=== PATIENT | female | born 2000 | race Caucasian/White ===

== ENCOUNTER 2024-12-17 18:03 | Inpatient (IN) | payer OTHER ==
[~2024-12-17] VITALS: Ht 162.6 cm; Wt 104.3 kg
[2024-12-17] MEDS: LORAZEPAM 0.5MG TABLET PO ONE (18:46)
[2024-12-17 19:08] LABS: BASOPHILS % 0.8 % (0.0-2.0); EOSINOPHILS % 0.7 % (0.0-5.0); HEMATOCRIT. 36.5 % (36.0-48.0); HEMOGLOBIN. 12.4 g/dL (12.0-16.0); LYMPHOCYTES % 23.2 % (20.0-50.0); MEAN CORPUSCULAR HEMOGLOBIN 27.6 pg (28.0-32.0); MEAN CORPUSCULAR HGB CONC 33.9 g/dL (31.0-37.0); MEAN CORPUSCULAR VOLUME 81.4 fL (81.0-99.0); MEAN PLATELET VOLUME 8.6 fl (7.4-10.4); MONOCYTES % 7.4 % (2.0-8.0); NEUTROPHILS % 67.9 % (40.0-76.0); PLATELET 257 x1000/uL (130-400); RED BLOOD CELL COUNT 4.49 mill/uL (4.2-5.4); RED CELL DISTRIBUTION WIDTH 14.2 % (11.6-14.6); WHITE BLOOD COUNT 8.5 x1000/uL (4.5-11.0)
[2024-12-17 19:13] LABS: CHLORIDE 109 mEq/L (98-107); POTASSIUM 3.9 mEq/L (3.5-5.1); SODIUM 138 mEq/L (136-145)
[2024-12-17 19:14] LABS: CARBON DIOXIDE 23 mEq/L (21-32)
[2024-12-17 19:19] LABS: CREATININE 0.7 mg/dL (0.6-1.0); GLUCOSE 91 mg/dL (70-105); UREA NITROGEN BLOOD 11 mg/dL (9-23)
[2024-12-17] MEDS ORDERED: CLONIDINE 0.1MG TABLET PO PRN (23:00)
[2024-12-17] MEDS ORDERED: ENOXAPARIN 40MG/0.4ML SYR SUBCUT SCH (23:00)
[2024-12-17] MEDS ORDERED: ONDANSETRON HCL 4MG/2ML INJ IV PRN (23:00)
[2024-12-17] MEDS ORDERED: NALOXONE HCL 0.4MG/ML VIAL IV PRN (23:15)
[2024-12-17 23:22] VITALS: BP 107/76; PULSE 95; RESP 16; TEMP 36.5
[2024-12-18] MEDS: SODIUM CHLORIDE 0.9% 1,000 ML IV SCH (00:32)
[2024-12-18 01:01] LABS: CLARITY URINE CLEAR (CLEAR); COLOR URINE YELLOW (YELLOW); GLUCOSE URINE NEGATIVE (NEGATIVE); KETONES URINE NEGATIVE (NEGATIVE); LEUKOCYTE ESTERASE URINE NEGATIVE (NEGATIVE); NITRITE URINE NEGATIVE (NEGATIVE); OCCULT BLOOD URINE NEGATIVE (NEGATIVE); PH URINE 5.5 (4.5-8.0); PROTEIN URINE NEGATIVE (NEGATIVE); UROBILINOGEN URINE 0.2 E.U./dL (0.2-1.0)
[2024-12-18 01:16] LABS: *AMPHETAMINES SCREEN URINE NEGATIVE (NEGATIVE); *BARBITURATES SCREEN URINE NEGATIVE (NEGATIVE); *BENZODIAZEPINES SCREEN URINE NEGATIVE (NEGATIVE); *COCAINE SCREEN URINE NEGATIVE (NEGATIVE); CANNABINOID URINE SCREEN NEGATIVE (NEGATIVE); ECSTASY MDMA SCREEN URINE NEGATIVE (NEGATIVE); METHADONE URINE SCREEN NEGATIVE (NEGATIVE); OPIATES URINE SCREEN NEGATIVE (NEGATIVE); PHENCYCLIDINE URINE SCREEN NEGATIVE (NEGATIVE)
[2024-12-18] MEDS: ACETAMINOPHEN 325MG TABLET PO PRN (04:03)
[2024-12-18] MEDS: ZOLPIDEM TARTRATE 5MG TABLET PO PRN (04:08)
[2024-12-18 08:00] VITALS: BP 110/73; PULSE 87; RESP 20; TEMP 35.9; O2SAT 98
[2024-12-18] MEDS: PANTOPRAZOLE SODIUM 40 MG/VIAL IV SCH (09:00)
[2024-12-18] MEDS: ENOXAPARIN 30MG/0.3ML SYR SUBCUT SCH (09:59)
[2024-12-18 12:00] VITALS: BP 122/79; PULSE 88; RESP 20; TEMP 36.5; O2SAT 97
[2024-12-18 16:00] VITALS: BP 104/67; PULSE 89; RESP 18; TEMP 36.2; O2SAT 100
[2024-12-18 20:00] VITALS: BP 101/54; PULSE 81; RESP 19; TEMP 37; O2SAT 98
[2024-12-18] MEDS ORDERED: ESCI-7 PO (23:08)
[2024-12-19] VITALS: BP 118/66; PULSE 81; RESP 19; TEMP 36.7; O2SAT 99
[2024-12-19 08:00] VITALS: BP 123/72; PULSE 70; RESP 18; TEMP 36.4; O2SAT 99
[2024-12-19] MEDS: CITALOPRAM HYDROBROMIDE 10MG TABLET PO SCH (08:49)
[2024-12-19 12:00] VITALS: BP 119/82; PULSE 88; RESP 18; TEMP 36.7; O2SAT 97
[2024-12-19] MEDS: HYDROCODONE/ACETAMINOPHEN 5/325MG TABLET PO PRN (14:37)
[2024-12-19 16:00] VITALS: BP 109/66; PULSE 84; RESP 18; TEMP 36.6; O2SAT 95
[2024-12-19 20:00] VITALS: BP 106/62; PULSE 85; RESP 20; TEMP 35.9; O2SAT 98
[2024-12-20] VITALS: BP 102/65; PULSE 76; RESP 20; TEMP 36.3; O2SAT 98
[2024-12-20 04:00] VITALS: BP 104/67; PULSE 70; RESP 20; TEMP 36.2; O2SAT 97
[2024-12-20 08:00] VITALS: BP 121/79; PULSE 81; RESP 18; TEMP 36.7; O2SAT 97
[2024-12-20] MEDS: BUPROPION HCL 150MG TABLET XL 24HR PO SCH (11:00)
[2024-12-20 12:00] VITALS: BP 125/79; PULSE 82; RESP 18; TEMP 36.5; O2SAT 98
[2024-12-20 20:00] VITALS: BP 107/77; PULSE 84; RESP 16; TEMP 36.3; O2SAT 100
[2024-12-21] VITALS: BP 119/69; PULSE 70; RESP 20; TEMP 36.8; O2SAT 96
[2024-12-21] MEDS ORDERED: ESCI10TA MT (00:46)
[2024-12-21 04:00] VITALS: BP 125/83; PULSE 63; RESP 19; TEMP 36.6; O2SAT 100
[2024-12-21] MEDS: FAMOTIDINE 20MG/2ML VIAL IV SCH (09:55)
[2024-12-21 12:00] VITALS: BP 135/84; PULSE 85; RESP 18; TEMP 36.7; O2SAT 97
[2024-12-21] MEDS ORDERED: ESCI-7 PO (12:03)
[2024-12-21] MEDS ORDERED: BUPR-114 PO (12:03)
[2024-12-21 16:00] VITALS: BP 119/74; PULSE 79; RESP 18; TEMP 36.6; O2SAT 98
[2024-12-21 20:00] VITALS: BP 128/79; PULSE 70; RESP 17; TEMP 36.1; O2SAT 97
[2024-12-22] VITALS (8 sets, daily range): BP systolic 98–133; BP diastolic 59–81; PULSE 64–82; RESP 17–19; TEMP 36.2–36.7; O2SAT 97–100
[2024-12-22 21:26] LABS: TROPONIN I HIGH SENSITIVITY < 4 ng/L (3.0-34)
[2024-12-23] VITALS: BP 115/78; PULSE 68; RESP 17; TEMP 36.9; O2SAT 96
[2024-12-23 04:00] VITALS: BP 118/76; PULSE 68; RESP 16; TEMP 36.6; O2SAT 100
[2024-12-23 08:00] VITALS: BP 125/76; PULSE 60; RESP 18; TEMP 36.2; O2SAT 100
[2024-12-23 12:00] VITALS: BP 134/93; PULSE 88; RESP 18; TEMP 36.5; O2SAT 100
[2024-12-23 16:00] VITALS: BP 134/88; PULSE 84; RESP 18; TEMP 36.5; O2SAT 98
[2024-12-23 20:00] VITALS: BP 126/86; PULSE 82; RESP 20; TEMP 36.3; O2SAT 98
[2024-12-24] VITALS: BP 123/81; PULSE 72; RESP 20; TEMP 36.4; O2SAT 98
[2024-12-24 04:00] VITALS: BP_SYST 118; BP_SYST 89; BP_DIAS 58; BP_DIAS 86; PULSE 66; RESP 20; TEMP 36.4; O2SAT 98
[2024-12-24 08:00] VITALS: BP 125/87; PULSE 78; RESP 17; TEMP 36.5; O2SAT 99
[2024-12-24 12:00] VITALS: BP 130/80; PULSE 80; RESP 18; TEMP 36.4; O2SAT 100
== END 2024-12-24 15:45 | disposition home health service (06) | DRG 641 ==
LOC: ER 18:03 → 6EST 21:48 → ENRESERV 22:21 → 6EST 12-22 18:55 → 6WST 12-22 20:55
PROVIDERS: ADMIT Internal Medicine; ATTEND Internal Medicine
PROC: GZ56ZZZ Individual Psychotherapy, Supportive (ICD-10-PCS; principal; 2024-12-20)
DX: R62.7 Adult failure to thrive (principal); R45.851 Suicidal ideations; F32.9 Major depressive disorder, single episode, unspecified; F41.1 Generalized anxiety disorder
CPT/HCPCS: 36415; 70551; 73030; 80048; 80305; 81003; 82962; 84484; 85025; 93005; 93306; 93970; 97116; 97162; 97530; 99285; A4606; J1308; J1650; J2470

== ENCOUNTER 2025-04-04 03:06 | Inpatient (IN) | payer OTHER ==
[~2025-04-04] VITALS: Ht 162.6 cm; Wt 116.1 kg
[~2025-04-04 03:06] MED LIST: BUPR-114 PO; ESCI-7 PO
[2025-04-04 03:10] VITALS: O2SAT 100
[2025-04-04 03:34] LABS: BASOPHILS % 0.6 % (0.0-2.0); EOSINOPHILS % 0.7 % (0.0-5.0); HEMATOCRIT. 35.3 % (36.0-48.0); HEMOGLOBIN. 11.5 g/dL (12.0-16.0); LYMPHOCYTES % 25.4 % (20.0-50.0); MEAN PLATELET VOLUME 8.5 fl (7.4-10.4); MONOCYTES % 6.3 % (2.0-8.0); NEUTROPHILS % 67.0 % (40.0-76.0); PLATELET 252 x1000/uL (130-400); RED BLOOD CELL COUNT 4.46 mill/uL (4.2-5.4); RED CELL DISTRIBUTION WIDTH 14.1 % (11.6-14.6)
[2025-04-04 03:45] LABS: HCG SCREEN NEGATIVE
[2025-04-04 03:48] LABS: CREATININE 1.0 mg/dL (0.6-1.0); UREA NITROGEN BLOOD 10 mg/dL (9-23)
[2025-04-04 03:49] LABS: ETHANOL BLOOD < 10 mg/dL (<10)
[2025-04-04 03:50] LABS: ASPARTATE AMINOTRANSFERASE 19 IU/L (<34)
[2025-04-04 03:51] LABS: BILIRUBIN DIRECT < 0.1 mg/dL (<=3.0); BILIRUBIN TOTAL 0.2 mg/dL (0.1-1.0); PROTEIN TOTAL 7.4 g/dL (6.0-8.3)
[2025-04-04] MEDS ORDERED: ACETAMINOPHEN 325MG TABLET PO PRN (05:30)
[2025-04-04] MEDS: SODIUM CHLORIDE 0.9% 1,000 ML IV ONE (05:56)
[2025-04-04 07:47] LABS: CLARITY URINE CLOUDY (CLEAR); COLOR URINE YELLOW (YELLOW); GLUCOSE URINE NEGATIVE (NEGATIVE); KETONES URINE NEGATIVE (NEGATIVE); LEUKOCYTE ESTERASE URINE NEGATIVE (NEGATIVE); NITRITE URINE NEGATIVE (NEGATIVE); OCCULT BLOOD URINE NEGATIVE (NEGATIVE); PH URINE 7.0 (4.5-8.0); PROTEIN URINE TRACE (NEGATIVE); SPECIFIC GRAVITY URINE 1.013 (1.005-1.030); UROBILINOGEN URINE 0.2 E.U./dL (0.2-1.0)
[2025-04-04 08:08] LABS: *AMPHETAMINES SCREEN URINE NEGATIVE (NEGATIVE); *BARBITURATES SCREEN URINE NEGATIVE (NEGATIVE); *BENZODIAZEPINES SCREEN URINE NEGATIVE (NEGATIVE); *COCAINE SCREEN URINE NEGATIVE (NEGATIVE); METHADONE URINE SCREEN NEGATIVE (NEGATIVE)
[2025-04-04 08:09] LABS: CANNABINOID URINE SCREEN NEGATIVE (NEGATIVE); ECSTASY MDMA SCREEN URINE NEGATIVE (NEGATIVE); OPIATES URINE SCREEN NEGATIVE (NEGATIVE); PHENCYCLIDINE URINE SCREEN NEGATIVE (NEGATIVE)
[2025-04-04 08:16] LABS: BACTERIA URINE 2+; RBC URINE 0-2 /hpf (0-2); SQUAMOUS EPITHELIAL CELL URINE 3+ /lpf (RARE/1+); YEAST URINE NONE SEEN
[2025-04-04 09:03] VITALS: BP 121/71; PULSE 103; RESP 20; TEMP 36.1; O2SAT 97
[2025-04-04 09:04] VITALS: BP 121/71; PULSE 103; RESP 20; TEMP 36.14
[2025-04-04 12:00] VITALS: BP 113/78; PULSE 98; RESP 20; TEMP 36.4; O2SAT 98
[2025-04-04 16:00] VITALS: BP 113/68; PULSE 87; RESP 18; TEMP 35.6; O2SAT 97
[2025-04-04] MEDS: ACETAMINOPHEN 325MG TABLET PO PRN (17:41)
[2025-04-04 20:00] VITALS: BP 103/62; PULSE 91; RESP 20; TEMP 36.8; O2SAT 96
[2025-04-05] VITALS: BP 122/72; PULSE 115; RESP 20; TEMP 36.7; O2SAT 99
[2025-04-05 04:00] VITALS: BP 119/81; PULSE 79; RESP 20; TEMP 36.9; O2SAT 97
[2025-04-05 07:39] LABS: T4 FREE 1.06 ng/dL (0.89-1.76)
[2025-04-05 08:00] VITALS: BP 116/83; PULSE 92; RESP 18; TEMP 36.5; O2SAT 98
[2025-04-05] MEDS: ONDANSETRON HCL 4MG/2ML INJ IV PRN (10:18)
[2025-04-05 12:00] VITALS: BP 115/56; PULSE 72; RESP 18; TEMP 36.7; O2SAT 97
[2025-04-05 16:00] VITALS: BP 107/63; PULSE 92; RESP 18; TEMP 36.6; O2SAT 98; O2SAT 99
[2025-04-05 20:00] VITALS: BP 119/68; PULSE 84; RESP 20; TEMP 36.3; O2SAT 98
[2025-04-06] VITALS: BP 117/65; PULSE 91; RESP 16; TEMP 36.3; O2SAT 100
[2025-04-06 04:00] VITALS: BP 113/63; PULSE 84; RESP 16; TEMP 36.2; O2SAT 98
[2025-04-06 08:00] VITALS: BP 111/72; PULSE 86; RESP 18; TEMP 36.6; O2SAT 100
[2025-04-06] MEDS ORDERED: GADOTERATE MEGLUMINE 5 MMOL/10 ML VIAL IV ONE (10:06)
[2025-04-06 12:00] VITALS: BP 114/66; PULSE 90; RESP 18; TEMP 36.7; O2SAT 97
[2025-04-06 13:12] VITALS: BP 114/66; PULSE 90; RESP 18; TEMP 98
== END 2025-04-06 15:45 | disposition home or self-care (01) | DRG 101 ==
LOC: ER 03:06 → 8WST 05:01 → EDBEDREQ 05:53 → EDBEDREQTM 05:53 → ENRESERV 07:06
PROVIDERS: ADMIT Student in an Organized Health Care Education/Training Program; ATTEND Student in an Organized Health Care Education/Training Program
PROC: 4A00X4Z Measurement of Central Nervous Electrical Activity, External Approach (ICD-10-PCS; principal; 2025-04-05)
DX: R56.9 Unspecified convulsions (principal); Z68.41 Body mass index [BMI] 40.0-44.9, adult; F32.A Depression, unspecified; E66.01 Morbid (severe) obesity due to excess calories; F41.9 Anxiety disorder, unspecified
CPT/HCPCS: 36415; 70553; 71045; 80048; 80076; 80305; 80320; 81003; 82550; 83735; 84439; 84443; 84703; 85025; 93005; 95816; 99285; A4606; A9577; J2405; J7030; G0480